=== PATIENT | male | born 1950 | race Caucasian/White ===

== ENCOUNTER 2019-09-18 07:01 | Observation (INO) ==
[2019-09-18] MEDS ORDERED: predniSONE 50 MG TAB PO ONE (07:45)
[2019-09-18] MEDS ORDERED: FAMOTIDINE 20MG IV PUSH 20 MG/5 ML SYR IV STA (07:52)
[2019-09-18] MEDS ORDERED: DiphenhydrAMINE HCL 50 MG/ML VIAL IV STA (07:52)
[2019-09-18] MEDS ORDERED: HEPARIN (PORCINE) 1000 UNIT/ML 10 ML (CATH LAB USE ONLY) ONE ×2 (07:54→09:36)
[2019-09-18] MEDS ORDERED: NiCARDipine HCL INJ 2.5 MG/ML 10 ML AMP ONE (07:54)
--- NOTE | 2019-09-18 07:54 | Pre Anesthesia Assessment ---
Date of Service September 18, 2019 Pre Sedation Assessment Vital Signs Temp Pulse Resp BP Pulse Ox 09/18/19 07:16 36.6 C 87 17 149/81 H 95 Cardiovascular + tachycardic Respiratory + respiratory effort normal Pre-Sedation Airway Assessment Smoking Status: Former smoker Hx Sleep Apnea: No Hx Difficult Intubation: No Short, Thick Neck: No Thyromental Distance: > or= 3.5 Finger Breadths Oral Cavity: + Dentures Mallampati Class: II ASA: ASA3 NPO Status Date of Last Intake of Fluids: 09/18/19 Time of Last Intake of Fluids: 06:00 Date of Last Intake of Solid Food: 09/17/19 Time of Last Intake of Solid Foods: 23:00 Procedure Planning Contraindications for Sedation: none Current Medications Reviewed: Yes Notes The planned sedation has been discussed with the patient. Informed Consent was obtained. I have identified the patient, determined the appropriateness of sedation and have assessed the patient immediately prior to the procedure. All medicine(s) and interventions are by my order.
--- NOTE | 2019-09-18 07:54 | History & Physical Bridge Note ---
Date of Service September 18, 2019 History & Physical Bridge Note I have examined the patient, reviewed the History & Physical and in the interval since the performance of the History & Physical I have noted the following changes of clinical significance: no changes noted. Pre-medicated for contrast allergy.
[2019-09-18] MEDS ORDERED: DiphenhydrAMINE HCL 50 MG/ML VIAL ONE (07:55)
[2019-09-18] MEDS ORDERED: NITROGLYCERIN/D5W 100MCG/ML 20ML SYR ONE (07:55)
[2019-09-18] MEDS ORDERED: fentaNYL citrate 100 MCG/2 ML VIAL ONE ×2 (07:55→09:15)
[2019-09-18] MEDS ORDERED: MIDAZOLAM HCL 1 MG/ML 2ML VIAL ONE ×4 (07:55→09:43)
[2019-09-18] MEDS ORDERED: raNITIdine HCl 25 MG/ML VIAL IV ONE (07:56)
[2019-09-18] MEDS ORDERED: ADENOSINE IV SOLN 3 MG/ML 20 ML VIAL IV ONE (08:51)
--- NOTE | 2019-09-18 09:04 | Cardiac Catheterization ---
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 Clinical evaluation leading to the procedure CAD Presenation: Stable angina Diagnostic Physicians Name: Onesimo Stokes MD Closure Device Recommendations: Management Recommendatons Cardiac Cath Procedure Full Procedure Date September 18, 2019 Pre-Procedure Diagnosis Pre-Procedure Diagnosis: CAD and Cardiomyopathy AUC Score AUC Score: 7 Post-Procedure Diagnosis Post-Procedure Diagnosis: Moderate CAD Procedure(s) Performed Procedure(s) Performed: Coronary Angiography and Left Heart Cath Comfort Filler Onesimo Stokes MD Sales Project Engineer(s) none Estimated Blood Loss Estimated Blood Loss: 7cc Medication(s) Medication(s): Diphenhydramine, Fentanyl, Heparin, Lidocaine 1%, Nicardipine, Nitroglycerin and Versed Medication(s): ranitidine Summary of Findings Procedure performed: Left heart catheterization, coronary angiography, ultrasound-guided vascular access Indication: Patient 69-year-old gentleman with a known history of coronary artery disease having previously undergone percutaneous intervention to the right coronary artery and left circumflex arteries. He has persistent cardiomyopathy, dyspnea with activity and occasional chest pains. Based on these factors he still be a good candidate for repeat coronary angiography and left heart catheterization. Procedure in detail: The patient was informed of the risk benefits and alternatives to the intended procedure, he understood such and wished to proceed. He was taken to the cardiac catheterization suite in a fasting state. Patient was premedicated due to a contrast allergy. Conscious addition was administered per protocol and the patient was monitored electrocardiographically throughout today's procedure. The left wrist area was prepped and draped in usual sterile fashion. Area over the ulnar artery was anesthetized using subcutaneous ministration of lidocaine solution. The left ulnar artery was subsequently accessed under ultrasound guidance using Seldinger technique. A 5 Ethiopian arterial sheath was placed at the site over a guidewire. The sheath was used to facilitate passage of the cardiac catheters for engagement the coronary arteries and left heart catheterization. Images were taken multiple orthogonal views prior to removal of the catheter. Based on the findings the patient was referred for evaluation of left anterior descending artery. The patient tolerated this portion of the procedure well. There were no immediate complications. Equipment used: 5 [place]ian [place] 4 Findings: Left main: The left main was short, but bifurcated normally into the left anterior descending and left circumflex arteries. Did not appear to be any significant left main disease. Left anterior descending: Left anterior descending was a medium sized vessel which reaches the apex. There was a very small first diagonal branch and a medium sized second diagonal branch and a large third diagonal branch. There was a complex lesion in the mid LAD at the site of the second diagonal takeoff. This was 60 to 70% in severity. It appeared to compromise the small first diagonal branch and ostium of the second diagonal branch. Left circumflex: Left circumflex artery was a codominant vessel. There was a stent in its proximal portion that was widely patent. It produced a large first and second OM branch and a medium sized third OM branch which produced some septal perforators. There was very mild ostial disease in these branches but no discrete or obstructive lesions. Right coronary artery: The right coronary artery had a stent in its proximal portion. There is very mild in-stent restenosis, approximately 30 to 40% at its most severe inside the stent. There were some luminal irregularities and a approximately 50% lesion in the mid portion of the PDA branch. No other discrete lesions. 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 Any exceptions are noted below. [facility] Card Cath Procedure Codes Cardiac Catheterization Procedure 1: Cardiovascular Cath Procedures: 28674 Coronaries and LHC (+/-LV) Moderate Sedation Procedure 2: Sedation/Anesthesia: 99904 Mod Sedation by the same physician;Init15 Min Child Age 5 & Up Procedure 1: Sedation/Anesthesia: 22064 Mod Sedation by the same physician; Ea [id number] Minutes PG Care Time/CCT Total # of Minutes Spent Total Time Spent with Patient: Total time spent is greater than 50% in coordination of care (as documented) at patient's floor/unit and/or counseling patient:
[2019-09-18] MEDS ORDERED: CLOPIDOGREL BISULFATE 300 MG TAB ONE (10:08)
[2019-09-18] MEDS ORDERED: ACETAMINOPHEN 325 MG TAB PO PRN (10:15)
[2019-09-18] MEDS ORDERED: SODIUM CHLORIDE 0.9% 1000ML 1,000 ML IV SCH (10:15)
--- NOTE | 2019-09-18 10:15 | Post Anesthesia Assessment ---
Date of Service September 18, 2019 Post Sedation Assessment Vital Signs Temp Pulse Resp BP Pulse Ox 09/18/19 07:16 97.9 F 87 17 149/81 H 95 Recovery Score Activity: Moves 4 extremities Respiration: Deep Breath/Cough Circulation: +/-20% PreAnes Value Consciousness: Fully Awake Oxygen Saturation: O2 needed for >90% Discharge Sedation Level of Care: Fast Track Phase II Post Sedation Plan On clinical assessment, the patient appears to have tolerated the sedation without complications. Patient is recovering as anticipated. Patient will continue to be monitored by nursing and may be discharged when sedation discharge criteria are met per below protocol. Upon Completions of procedure up to 15 minutes continue every 5 minute vital signs and the P.A.R. score; then discharge to a Phase I or Fast Track to Phase I I per the following guidelines: * Discharge Patient to appropriate Phase II area if PAR is 8 or greater or return to pre- procedure baseline. The post - procedure orders will be as directed. * If PAR score is less than 8 or not return to pre-procedure baseline then patient will follow Phase I monitoring till PAR is reached for Phase II. The Phase I may be done in procedure room or may call to secure a Phase I area. * If naloxone or flumazenil are used for reversal, hold in Phase I for continued monitoring from when last reversal dose was given for a minimum of 60 minutes or longer pending the nurse and/or physician discretion of patient condition before discharge to Phase II. Please call the Sedation Physician to re-evaluate and complete post-note for discharge to Phase II area. Do NOT discharge from procedure sedation or Phase 1 until post- sedation evaluation note is complete by procedure /sedation MD Sedation Discharge Instructions to be given to the patient at discharge to home.
[2019-09-18] MEDS ORDERED: ALBUTEROL HFA 8 GM INHALER INH PRN (10:19)
--- NOTE | 2019-09-18 10:22 | Cardiac Catheterization ---
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 Clinical evaluation leading to the procedure CAD Presenation: Unstable angina Anginal Classification: CCS III Heart Failure: NYHA Class: CCS III Cardiogenic Shock within 24 Hours: No Cardiac Arrest within 24 Hours: No Imaging Studies Past 6 Months: Yes Stress Studies Past 6 Months: No Diagnostic Physicians Name: Onesimo Del Real MD Status: Elective Closure Device Percutaneous Entry Location: Radial Closure Device: Radial Band Recommendations: PCI without planned CABG PCI Indication: Unstable Angina Lesion Segment Name: mid LAD Culprit Artery: Yes Stenosis Prior to Rx (%): 70 Chronic Total Occlusion: No IVUS: Yes FFR: Yes Pre-Procedure ONEL Flow: 3 Previously Treated Lesion: No Lesion Complexity: Non-High/Non-C Lesion Length (mm): 25 Thrombus Present: No Bifurcation Lesion: Yes Guidewire Across Lesion: Stenosis Post-Procedure (%): 0 Post-Procedure ONEL Flow: 3 Devices(s) Deployed: Yes Yes Intraprocedure Events Significant Disection: No Perforation: No Cardiac Cath Procedure Full Procedure Date September 18, 2019 Pre-Procedure Diagnosis Pre-Procedure Diagnosis: CAD and Cardiomyopathy AUC Score AUC Score: 7 Post-Procedure Diagnosis Post-Procedure Diagnosis: Severe CAD and Successful PCI Procedure(s) Performed Procedure(s) Performed: Drug Eluting Stent, IVUS and Fractional Flow [place] [employer] Sales And Service Manager Onesimo Del Real MD Prepress Supervisor(s) Zenon Sanchez Estimated Blood Loss Estimated Blood Loss: 15 Medication(s) Medication(s): Clopidogrel, Fentanyl, Heparin, Nicardipine, Nitroglycerin and Versed Summary of Findings Indication: Progressive dyspnea, severe LV dysfunction Access: 6 Fr slender left radial artery Catheters: EBU 3.5 guide Findings: For full details of patient's coronary angiography please cath report dictated by Dr. Stokes. Briefly, patient found to have intermediate mid LAD at bifurcation with first diagonal. Decision to proceed FFR and possible PCI. -- PCI -- Antithrombotic therapy: Heparin, clopidogrel Procedure: Left main cannulated with EBU 3.5 guide BMW wire passed across lesion into distal vessel ACIST FFR catheter placed into late-mid LAD Pd/Pa 0.81 Decision to proceed with PCI IVUS used to assess length of disease, degree of calcification and for vessel sizing. Proximal to mid LAD lesion predilated with 2.0 compliant pharmacy technician assistant 50 wire placed into first diagonal Ostium of first diagonal dilated with 2.0 balloon Dilated LAD lesion stented with 3.0 x 38 mm Kristian drug-eluting stent Diagonal rewired with new forestry pilot 50 wire Ostium of diagonal through stent struts dilated with 2.0 balloon Stent post-dilated with 3.0 and 3.5 noncompliant balloons IC vasodilators administered for spasm IVUS showed well-expanded stent with no apparent edge complications. Post procedure NOEL 3 flow, stent well expanded with minimal residual stenosis and no apparent cardiac complications. Arterial Closure: TR band Summary: 1. Severe obstructive mid LAD stenosis by FFR 2. Successful PCI of proximal to mid LAD with single drug-eluting stent (3.0 x 30 mm Kristian; postdilated with 3.5 NC). 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 Any exceptions are noted below. [facility] Card Cath Procedure Codes Cardiac Catheterization Procedure 1: Cardiovascular Cath Procedures: 59387 (Doppler) Pressure Wire Therapeutic Services & Ancillary Proc Procedure 1: Cardiovascular Tx and Anc Procedures: 55311 IV Ultrasound (Coronary or Graft) Moderate Sedation Procedure 1: Sedation/Anesthesia: 95955 Mod Sedation by a different physician ;Init15 Min Child Age 5&Up Procedure 2: Sedation/Anesthesia: 86045 Mod Sedation by a different physician;Ea Additional 15 Minutes Angioplasty Procedure 1: Cardiovascular Angioplasty Procedures: 75280 PTCA; ea addl branch of a major cor art RC LC LD Stenting Procedure 1: Cardiovascular Stent Procedures: 69504 Perc transcatheter placement of intracoronary stent(s), with ang PG Care Time/CCT Total # of Minutes Spent Total Time Spent with Patient: Total time spent is greater than 50% in coordination of care (as documented) at patient's floor/unit and/or counseling patient:
[2019-09-18] MEDS ORDERED: GLUCAGON FOR INJ 1 MG VIAL IM PRN (12:15)
[2019-09-18] MEDS ORDERED: GLUCOSE 40% GEL 15 GM TUBE PO PRN (12:15)
[2019-09-18] MEDS ORDERED: GLUCOSE 10 TABS/TUBE PO PRN (12:15)
[2019-09-18] MEDS ORDERED: CARBOHYDRATES FOR HYPOGLYCEMIA PO PRN (12:15)
[2019-09-18] MEDS ORDERED: DEXTROSE 50% 50 ML SYRINGE IV PRN (12:15)
[2019-09-18] MEDS: INSULIN ASPART 100 UNITS/ML 3 ML PEN SC SCH ×3 (12:42→20:29)
[2019-09-18] MEDS ORDERED: glipiZIDE 5 MG TAB PO SCH (14:00)
--- NOTE | 2019-09-18 19:06 | Electrocardiogram Report ---
Test Reason : Blood Pressure : / mmHG Vent. Rate : 093 BPM Atrial Rate : 093 BPM P-R Int : 122 ms QRS Dur : 148 ms QT Int : 424 ms P-R-T Axes : 047 -12 102 degrees QTc Int : 527 ms Normal sinus rhythm Left bundle branch block Abnormal ECG When compared with ECG of 16-MAR-2014 11:32, Vent. rate has increased BY 31 BPM Left bundle branch block is now Present Confirmed by Onesimo Stokes ([id number]) on 09/18/2019 7:06:07 PM Referred By: John Stokes Confirmed By:Kg Stokes
[2019-09-18] MEDS: SACUBITRIL-VALSARTAN 24-26 MG TAB PO SCH (20:26)
[2019-09-18] MEDS ORDERED: SIMVASTATIN 40 MG TAB PO SCH (21:00)
[2019-09-19 06:05] LABS: Basophils # (auto) 0.02 K/uL (0-0.2); Basophils % (auto) 0.2 %; Eosinophils # (auto) 0.02 K/uL (0-0.5); Eosinophils % (auto) 0.2 %; Hematocrit (blood only) 34.5 % (42-52); Hemoglobin 10.7 g/dL (14.0-18.0); Immature Granulocytes # (auto) 0.07 K/uL (0.00-0.02); Immature Granulocytes % (auto) 0.6 %; Lymphocytes # (auto) 1.82 K/uL (1.2-3.4); Lymphocytes % (auto) 14.5 %; Mean Corpuscular Hemoglobin 21.5 pg (25-34); Mean Corpuscular Volume 69.3 fL (80-100); Mean Platelet Volume 10.5 fL (7.4-10.4); Monocytes % (auto) 7.2 %; Neutrophils # (auto) 9.74 K/uL (1.4-6.5); Neutrophils % (auto) 77.3 %; Platelet Count 200 K/uL (130-400); RDW Coefficient of Variation 15.2 % (11.5-14.5); RDW Standard Deviation 37.8 fL (36.4-46.3); Red Blood Count 4.98 M/uL (4.7-6.1); White Blood Count 12.57 K/uL (4.8-10.8)
[2019-09-19 06:40] LABS: BUN Creatinine Ratio 14.2 (10-20); Calcium 8.3 mg/dl (8.5-10.1); Creatinine Clr Calc Pharmacy 69.6 ml/min; Est GFR (African American) 79.5; Est GFR (Non-African American) 68.6; Potassium 3.4 mmol/L (3.5-5.1)
[2019-09-19 06:49] LABS: Microcytosis Present
[2019-09-19] MEDS: SACUBITRIL-VALSARTAN 24-26 MG TAB PO SCH (08:36)
[2019-09-19] MEDS: INSULIN ASPART 100 UNITS/ML 3 ML PEN SC SCH (08:37)
[2019-09-19] MEDS ORDERED: FLUTICASONE/VILANTEROL 100/25MCG 14 PUFFS/INHALER INH SCH (09:00)
[2019-09-19] MEDS ORDERED: FOLIC ACID 400 MCG TAB PO SCH (09:00)
[2019-09-19] MEDS ORDERED: PANTOprazole 40 MG TAB PO SCH (09:00)
[2019-09-19] MEDS ORDERED: CEROVITE ADV FORMULA TAB PO SCH (09:00)
[2019-09-19] MEDS ORDERED: METOPROLOL SUCC 50MG EXT REL TAB PO SCH (09:00)
[2019-09-19] MEDS ORDERED: VITAMIN B COMPLEX TAB PO SCH (09:00)
[2019-09-19] MEDS ORDERED: CLOPIDOGREL BISULFATE 75 MG TAB PO SCH (09:00)
[2019-09-19] MEDS ORDERED: CHOLECALCIFEROL 1,000 UNITS 25 MCG TAB PO SCH (09:00)
--- NOTE | 2019-09-25 16:24 | Discharge Summary ---
Date of Service September 20, 2019 Admission HPI Per Admitting Provider The patient has a known cardiomyopathy and has persistent symptoms of dyspnea with activity. He is felt to be a good candidate for coronary angiography. Principal Diagnosis q Discharge Exam Left radial access site without hematoma. Good perfusion of left hand. Palpable ulnar pulse. Discharge Data Allergies Allergy/AdvReac Type Severity Reaction Status Date / Time Iodinated Contrast Media Allergy Severe Anaphylaxis Verified 09/24/19 01:36 aspirin Allergy Hives Verified 09/24/19 01:36 adenosine AdvReac Severe Wheezing Verified 09/24/19 01:36 oxycodone [From Percocet] AdvReac Severe Anxiety Verified 09/24/19 01:36 propranolol [From Inderal LA] AdvReac Mild Wheezing Verified 09/24/19 01:36 steroids AdvReac Severe Mood change Uncoded 09/24/19 01:36 Consultations 09/18/19 10:17 Consult Cardiac Rehabilitation Routine Procedures Performed Operation Date: 09/18/19 08:00 Actual Procedures s Drug Eluting Stent SGl Vessel - John Del Real MD s Cineradiography w/Routine Exam - John Del Real MD p Cath, Left with Cors and Vent - John Stokes MD s IVUS Coronary Single Vessel - John Del Real MD s Fraction Flow [place] SGL Ves - John Del Real MD Ordered Studies 09/18/19 06:41 CL Cath Imgs for PACS use only Stat 09/18/19 10:59 CL IVUS Coronary Single Vessel Routine Hospital Course (1) Ischemic cardiomyopathy: On the day of admission the patient underwent coronary angiography via the left ulnar artery. He was noted to have stenosis in the mid LAD which was confirmed with invasive testing. He underwent percutaneous intervention at that site. The remainder of his hospitalization was uncomplicated. At time of discharge he was feeling well without symptoms. Total Time Total Time Spent Total Time Spent (In Minutes): 10 Total Time Includes: Examination of the Patient and Medication Reconciliation Discharge Plan Discharge Items Patient Disposition: Home - Self-Care Reason For Visit: PCI Discharge Diagnosis: CAD Condition on Discharge: Good Activity: Per Instructions section Activity Comment: No vigorous activity using the left hand or wrist for 7 days Lifting: No more than 5 pounds Lifting Comment: No lifting over 5 pounds for 7 days Bathing: No limitations Bathing Comment: Do not soak left wrist Driving/Machine Use: Resume 1 day after discharge Non-emergency contact: Airline Pilot Flight Instructor Call non-emergency contact if: you have any medication questions Follow-up/Referrals: Cindy Barnett MD [Primary Care Provider] - 09/22/19 3:00 pm (Follow-up appt with Dr. Barnett at [facility]. ) Diet: Carb Consistent or DM2 Addtl Attending Provider Instructions: Do not start metformin until tomorrow morning Pending Studies at Discharge: No Stand-Alone Forms: My [facility] [email or web address], Smoking Cessation Medications and DC Order Prescriptions: New Brilinta 90 mg tablet 90 mg PO Q12H Qty: 120 RF: 3 Continued simvastatin [Zocor] 40 mg tablet 40 mg PO HS RF: 0 cholecalciferol (vitamin D3) 25 mcg (1,000 unit) capsule 25 mcg PO QAM RF: 0 albuterol sulfate [Ventolin HFA] 90 mcg/actuation HFA aerosol inhaler 2 puffs INH Q6H PRN (Reason: Shortness Of Breath) RF: 0 metformin 500 mg tablet 500 mg PO QID RF: 0 nitroglycerin 0.4 mg tablet, sublingual 0.4 mg SL Q5M PRN (Reason: Chest Pain) RF: 0 fluticasone propion-salmeterol 232-14 mcg/actuation aerosol powdr breath activated 1 puffs INH BID RF: 0 metoprolol succinate 50 mg tablet extended release 24 hr 50 mg PO DAILY RF: 0 Entresto 24-26 mg tablet 1 tab PO BID RF: 0 pantoprazole 40 mg tablet,delayed release (DR/EC) 40 mg PO DAILY RF: 0 folic acid 800 mcg tablet 0.8 mg PO DAILY RF: 0 Discontinued clopidogrel [Plavix] 75 mg tablet 75 mg PO DAILY RF: 0 No Action glipizide 5 mg tablet extended release 24hr 5 mg PO BID RF: 0 ipratropium-albuterol 0.5 mg-3 mg(2.5 mg base)/3 mL Solution For Nebulization 3 ml INHALATION QID PRN (Reason: Shortness Of Breath Or Wheezing) RF: 0 PreserVision AREDS-2 [id number] Capsule 1 tab PO BID RF: 0 isosorbide mononitrate 30 mg tablet extended release 24 hr 30 mg PO DAILY Qty: 30 RF: 0 Discharge Orders: Discharge Order (Routine); Ordered 09/19/19 Ordered By: John Cash/Other Patient Handouts: Coronary Stents, Cardiac Catheterization, Ticagrelor oral tablet Admission Data Admit Date/Time: 09/18/19 09:24 Attending Provider: John Stokes Admit Provider: John Stokes Primary Care Provider: Cindy Barnett Other Interventions: Discharge Summary Assessment (RN) Last Done: 09/19/19 10:58 DC Date/Time DO NOT enter until pt leaves facility: 09/19/19 11:01 Coding Level of Care Code D/C Day Management <30 mins Diagnoses Ischemic cardiomyopathy I25.5
== END 2019-09-19 11:01 | disposition home or self-care (01) ==
LOC: CC 07:01 → 2S 07:01

== ENCOUNTER 2019-09-24 00:21 | Observation (INO) ==
[2019-09-24 01:41] LABS: Basophils # (auto) 0.03 K/uL (0-0.2); Basophils % (auto) 0.3 %; Eosinophils # (auto) 0.37 K/uL (0-0.5); Eosinophils % (auto) 3.5 %; Hematocrit (blood only) 38.1 % (42-52); Immature Granulocytes # (auto) 0.15 K/uL (0.00-0.02); Immature Granulocytes % (auto) 1.4 %; Lymphocytes # (auto) 1.79 K/uL (1.2-3.4); Mean Corpuscular Hgb Conc 31.5 g/dL (32-36); Mean Corpuscular Volume 69.8 fL (80-100); Mean Platelet Volume 10.5 fL (7.4-10.4); Monocytes # (auto) 1.02 K/uL (0.11-0.59); Monocytes % (auto) 9.7 %; Neutrophils # (auto) 7.15 K/uL (1.4-6.5); Neutrophils % (auto) 68.1 %; Platelet Count 209 K/uL (130-400); RDW Coefficient of Variation 15.8 % (11.5-14.5); RDW Standard Deviation 39.6 fL (36.4-46.3); Red Blood Count 5.46 M/uL (4.7-6.1); White Blood Count 10.51 K/uL (4.8-10.8)
[2019-09-24 01:56] LABS: Partial Thromboplastin Time 27.3 Seconds (21.0-31.0); Prothrombin Time 10.2 Seconds (9.0-12.0)
[2019-09-24 01:59] LABS: Albumin Level 3.3 gm/dl (3.4-5.0); Calcium 8.7 mg/dl (8.5-10.1); Creatinine Clr Calc Pharmacy 70.9 ml/min; Est GFR (African American) 77.8; Est GFR (Non-African American) 67.1; Potassium 3.8 mmol/L (3.5-5.1)
[2019-09-24 02:06] LABS: Albumin Globulin Ratio 0.9 (0.9-2); Bilirubin,Total 0.4 mg/dl (0.2-1); Globulin 3.5 gm/dl (2.5-4.0); Microcytosis Present; Phosphorus 2.6 mg/dl (2.5-4.9); Total Protein 6.8 gm/dl (6.4-8.2); Troponin I 0.389 ng/ml (0-0.045)
--- NOTE | 2019-09-24 02:14 | Emergency Department Note ---
Entered by Kamini Seymour acting as a scribe for History of Present Illness General Chief complaint: Chest Pain Stated complaint: CHEST PAIN Time Seen by Provider: 09/24/19 01:01 Source: patient and family () History of Present Illness Provider complaint: chest pain Onset (ago): hour(s) (earlier today) Location: chest Radiation: extremity (upper) Pain Consistency: + intermittent Quality: + other (chest pain) Associated symptoms: + diaphoresis and + other (Negative congestion; ); no cough and no fever/chills Treatments prior to arrival: other (Medication) The patient, who is a 69 year old male with a medical history of hypertension, diabetes, LBBB, COPD and ischemic cardiomyopathy, presents to the Emergency Room with complaints of 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 The patient notes this episode of chest pain that lasted five to 10 minutes. The patient notes that this chest pain radiated to down his arm. The patient's confirms the patient was clammy and cold during this episode. The patient states that he took a medication the alleviated his arm pain and then his chest symptoms. The patient informs that on his way to the ER he had an episode of chest burning that was not similar to the pain he felt earlier today. The patent states that this episode lasted two to three minutes. The patient denies fever, cough and congestion. The patient confirms an extensive cardiac history including heart failures before stent placements and a 70% blockage. The patient notes that he was at the roofing subcontractor for a cardiac cath. week follow up when his symptoms started. Home Medications Home Medications Medication Instructions Recorded Confirmed Type albuterol sulfate 90 mcg/actuation 2 puffs INH Q6H PRN 09/04/19 09/24/19 History aerosol inhaler cholecalciferol (vitamin D3) 25 25 mcg PO QAM 09/04/19 09/24/19 History mcg (1,000 unit) capsule fluticasone 232 mcg-salmeterol 14 1 puffs INH BID 09/04/19 09/24/19 History mcg/actuation breath activated powdr folic acid 800 mcg tablet 0.8 mg PO DAILY 09/04/19 09/24/19 History metformin 500 mg tablet 500 mg PO QID tab 09/04/19 09/24/19 History metoprolol succinate 50 mg 50 mg PO DAILY 09/04/19 09/24/19 History tablet,extended release 24 hr nitroglycerin 0.4 mg sublingual 0.4 mg SL Q5M PRN 09/04/19 09/24/19 History tablet pantoprazole 40 mg tablet,delayed 40 mg PO DAILY 09/04/19 09/24/19 History release sacubitril 24 mg-valsartan 26 mg 1 tab PO BID 09/04/19 09/24/19 History tablet simvastatin 40 mg tablet 40 mg PO HS 09/04/19 09/24/19 History ticagrelor [Brilinta] 90 mg PO Q12H #120 tab 09/19/19 09/24/19 Rx glipizide 5 mg PO BID 09/24/19 09/24/19 History ipratropium-albuterol 3 ml INHALATION QID PRN 09/24/19 09/24/19 History vit C,A-Ce-jotog-lutein-zeaxan 1 tab PO BID 09/24/19 09/24/19 History [PreserVision AREDS-2] Allergies Allergy/AdvReac Type Severity Reaction Status Date / Time Iodinated Contrast Media Allergy Severe Anaphylaxis Verified 09/24/19 01:36 aspirin Allergy Hives Verified 09/24/19 01:36 adenosine AdvReac Severe Wheezing Verified 09/24/19 01:36 oxycodone [From Percocet] AdvReac Severe Anxiety Verified 09/24/19 01:36 propranolol [From Inderal LA] AdvReac Mild Wheezing Verified 09/24/19 01:36 steroids AdvReac Severe Mood change Uncoded 09/24/19 01:36 Past Med/Surg History Medical History COPD (chronic obstructive pulmonary disease) Coronary disease Myocardial infarction to 2002 3.0 x 18 multilink zeta to RCA 09/19/2002 3.5 x 8 millimeter multilink zeta to RCA 09/19/2002 Cardiac catheterization 01/17/2014 Cardiac catheterization 10/17/2018 with PCI to left circumflex, 2.75 x 32 synergy stent. 50 percent mid LAD stenosis, widely patent RCA. Diabetes mellitus Dyspnea Gastroesophageal reflux disease Hypertension Ischemic cardiomyopathy Echocardiogram dated 05/11/2019: Ejection fraction 15-20 percent. Left bundle branch block Surgical History History of appendectomy History of prostate surgery Social History Preferred Language: [place] [employer] Chief Required: No Beliefs That Will Affect Care: None Current Living Situation: Spouse Feels Safe at Home: Yes Smoking Status: Former smoker Hx Alcohol Use: No Hx Substance Use: No Review of Systems See HPI for pertinent positives & negatives. and A total of 10 systems reviewed and were otherwise negative Physical Exam Vital Signs Vital Signs - 24 hr 09/24/19 00:30 09/24/19 00:53 09/24/19 01:00 Pulse Rate 101 H 98 H Pulse Rate [Apical] 98 H Pulse Rate from SpO2 Sensor 97 H Respiratory Rate 20 17 21 Respiratory Effort / Characteristics Non-Labored Respiratory Depth Normal Normal Blood Pressure 127/76 110/75 Blood Pressure [Right Arm] 121/80 Blood Pressure Mean 93 90 Blood Pressure Mean [Right Arm] 93 Pulse Oximetry 97 95 96 Oxygen Delivery Method Room Air Room Air Sepsis Recent Fever Within 48 Hours No Sepsis New/Unexplained Change in Mental Status No Sepsis Action Taken by Nursing No Action Required 09/24/19 01:27 09/24/19 01:31 09/24/19 02:00 Pulse Rate 97 H 93 H Pulse Rate [Apical] Pulse Rate from SpO2 Sensor 93 H Respiratory Rate 24 16 Respiratory Effort / Characteristics Respiratory Depth Blood Pressure 115/78 112/75 Blood Pressure [Right Arm] Blood Pressure Mean 82 90 Blood Pressure Mean [Right Arm] Pulse Oximetry 97 97 95 Oxygen Delivery Method Room Air Room Air Room Air Sepsis Recent Fever Within 48 Hours Sepsis New/Unexplained Change in Mental Status Sepsis Action Taken by Nursing 09/24/19 02:01 09/24/19 02:30 09/24/19 03:00 Pulse Rate 93 H 91 H 91 H Pulse Rate [Apical] Pulse Rate from SpO2 Sensor 94 H 91 H 91 H Respiratory Rate 21 13 22 Respiratory Effort / Characteristics Respiratory Depth Blood Pressure 116/70 111/68 Blood Pressure [Right Arm] Blood Pressure Mean 87 83 Blood Pressure Mean [Right Arm] Pulse Oximetry 96 96 97 Oxygen Delivery Method Sepsis Recent Fever Within 48 Hours Sepsis New/Unexplained Change in Mental Status Sepsis Action Taken by Nursing 09/24/19 03:30 Pulse Rate 96 H Pulse Rate [Apical] Pulse Rate from SpO2 Sensor 96 H Respiratory Rate 15 Respiratory Effort / Characteristics Respiratory Depth Blood Pressure Blood Pressure [Right Arm] Blood Pressure Mean Blood Pressure Mean [Right Arm] Pulse Oximetry 96 Oxygen Delivery Method Sepsis Recent Fever Within 48 Hours Sepsis New/Unexplained Change in Mental Status Sepsis Action Taken by Nursing GENERAL: Awake, alert, well-appearing, in no distress HENT: Normocephalic, atraumatic. Oropharynx unremarkable. EYES: Normal conjunctiva. Sclera non-icteric. NECK: Supple. No nuchal rigidity. FROM. No JVD. RESPIRATORY: Diminished breath sounds at bases, otherwise clear. CARDIAC: Regular rate, normal rhythm. Extremities warm and well perfused. Pulses equal. ABDOMEN: Soft, non-distended. No tenderness to palpation. No rebound or guarding. No masses. RECTAL: Deferred. MUSCULOSKELETAL: Chest examination reveals no tenderness. The back is symmetrical on inspection without obvious abnormality. There is no CVA tenderness to palpation. No joint edema. LOWER EXTREMITIES: Calves are equal size bilaterally and non-tender. Scant bilateral lower extremity edema. No discoloration. NEURO: Normal sensorium. No sensory or motor deficits noted. SKIN: No rash or jaundice noted. Course Course 0117: Past medical records reviewed. The patient was evaluated in room C5. A complete history and physical exam was performed. 0250: I reviewed the patient's case with Dr. Beltran, [facility] Hospitalist. He will evaluate the patient for further management. Consultations Consultation #1: I reviewed the patient's case with Dr. Beltran [facility] Hospitalist. He will evaluate the patient for further management. Medical Decision Making Differential Diagnosis Differential diagnosis includes: cardiac ischemia, aortic dissection, pulmonary embolism, pneumonia, pneumothorax, musculoskeletal, infections, pericarditis, myocarditis, esophageal rupture, gastrointestinal, as well as others were entertained. Medical Records Attestation: I reviewed the patient's medical records. Home Medications Current Medication List: was personally reviewed by me Laboratory Data Attestation: I reviewed the patient's lab results. Result diagrams: 09/24/19:09/24/19: Lab Results 09/24/19 09/24/19 09/24/19 Range/Units 01: 01: 01:29 WBC 10.51 (4.8-10.8) K/uL RBC 5.46 (4.7-6.1) M/uL Hgb 12.0 L (14.0-18.0) g/dL Hct 38.1 L (42-52) % MCV 69.8 L (80-100) fL MCH 22.0 L (25-34) pg MCHC 31.5 L (32-36) g/dL RDW Std Deviation 39.6 (36.4-46.3) fL RDW Coeff of Awais 15.8 H (11.5-14.5) % Plt Count 209 (130-400) K/uL MPV 10.5 H (7.4-10.4) fL Immature Gran % (Auto) 1.4 % Neut % (Auto) 68.1 % Lymph % (Auto) 17.0 % [place] % (Auto) 9.7 % Eos % (Auto) 3.5 % Baso % (Auto) 0.3 % Immature Gran # (Auto) 0.15 H (0.00-0.02) K/uL Neut # (Auto) 7.15 H (1.4-6.5) K/uL Lymph # (Auto) 1.79 (1.2-3.4) K/uL [place] # (Auto) 1.02 H (0.11-0.59) K/uL Eos # (Auto) 0.37 (0-0.5) K/uL Baso # (Auto) 0.03 (0-0.2) K/uL Microcytosis Present PT 10.2 (9.0-12.0) Seconds INR 1.0 (0.9-1.1) APTT 27.3 (21.0-31.0) Seconds PTT Ratio 1.0 Sodium 139 (136-145) mmol/L Potassium 3.8 (3.5-5.1) mmol/L Chloride 110 H (98-107) mmol/L Carbon Dioxide 20 L (21-32) mmol/L Anion Gap 9.0 (3-11) BUN 13 (7-18) mg/dl Creatinine 1.12 (0.6-1.4) mg/dl Est Cr Clr Drug Dosing 70.9 ml/min Est GFR ( Amer) 77.8 Est GFR (Non-Af Amer) 67.1 BUN/Creatinine Ratio 12.0 (10-20) Glucose 208 H (70-99) mg/dl Calcium 8.7 (8.5-10.1) mg/dl Phosphorus 2.6 (2.5-4.9) mg/dl Magnesium 2.0 (1.8-2.4) mg/dl Total Bilirubin 0.4 (0.2-1) mg/dl AST 7 L (15-37) U/L ALT 15 (12-78) U/L Alkaline Phosphatase 52 (45-117) U/L Troponin I 0.389 H* (0-0.045) ng/ml Total Protein 6.8 (6.4-8.2) gm/dl Albumin 3.3 L (3.4-5.0) gm/dl Globulin 3.5 (2.5-4.0) gm/dl Albumin/Globulin Ratio 0.9 (0.9-2) Lipase 97 (73-393) U/L Imaging Data Attestation: I personally reviewed and interpreted this imaging study as follows: My Impression: XRAY CHEST Cardiomegaly with no infiltrate. ECG Data Attestation: I personally reviewed and interpreted this ECG as follows: Indication: + chest pain Rate (beats per minute): 104 Rhythm: + sinus tachycardia ECG Intervals/blocks: + Left bundle branch block ECG Findings: + Other (No scgarbossa criteria; QtC of 502; QRS of 140) Blood Pressure Blood Pressure Findings: Normal blood pressure MDM Narrative The patient is a pleasant 69-year-old gentleman with a past medical history of CAD status post PCI 09/18 for unstable angina, chronic left bundle branch block, ischemic cardiomyopathy EF 15-20%, hypertension, COPD who presents emergency department after being evaluated at [facility] for episode of chest pain that occurred at 4 PM today when following up with his PCP per HPI. Of note, the was question of an attempt to arrange direct admission from the outside hospital given the patient had a stent placed here last week with Dr. Del Real. Per [place] ED note, [place] provider discussed the case with Dr. Ballesteros who recommended admission for ASA desensitization and serial enzymes. Per the outside hospital documentation patient refused admission at [facility] and did not want to be transfer via ambulance and so signed out AMA and drove here in private vehicle. On arrival patient is in no acute distress, afebrile stable vital signs. EKG demonstrates left bundle branch block without Sgarbossa criteria. Chest x-ray without acute process per preliminary review. WBC within normal limits. Platelets within normal limits. H/H 12/38 improved from prior values. Chemistry without significant acidosis. Troponin is 0.389 which is decreased from 0.54 at outside facility at 1700. Patient continued to be asymptomatic in the emergency department. Case was discussed with Dr. Beltran [facility] hospitalist, who will evaluate the patient for admission. Case was reviewed with [facility] cardiology on-call, on behalf of admitting team, does not recommend heparin and this time. Continue to trend Troponin. Dr. Beltran updated. Continuous Cardiac Monitoring: An order was placed for continuous cardiac monitoring. The monitor shows a rate of 104 with a sinus tachycardic rhythm. Impression & Plan Substernal chest pain, History of percutaneous coronary intervention, Stented coronary artery, Elevated troponin, Left bundle branch block, Ischemic cardiomyopathy Discharge Plan Visit Data Chief Complaint: Chest Pain Stated Complaint: CHEST PAIN ED Provider: Nasir Bean Discharge Problem: Substernal chest pain, History of percutaneous coronary intervention, Stented coronary artery, Elevated troponin, Left bundle branch block, Ischemic cardiomyopathy Patient Disposition: Being Evaluated by Hospitalist Forms Stand Alone Forms: My [facility] [employer] Prescriptions Prescriptions: No Action simvastatin [Zocor] 40 mg tablet 40 mg PO HS RF: 0 cholecalciferol (vitamin D3) 25 mcg (1,000 unit) capsule 25 mcg PO QAM RF: 0 albuterol sulfate [Ventolin HFA] 90 mcg/actuation HFA aerosol inhaler 2 puffs INH Q6H PRN (Reason: Shortness Of Breath) RF: 0 metformin 500 mg tablet 500 mg PO QID RF: 0 nitroglycerin 0.4 mg tablet, sublingual 0.4 mg SL Q5M PRN (Reason: Chest Pain) RF: 0 fluticasone propion-salmeterol 232-14 mcg/actuation aerosol powdr breath activated 1 puffs INH BID RF: 0 metoprolol succinate 50 mg tablet extended release 24 hr 50 mg PO DAILY RF: 0 Entresto 24-26 mg tablet 1 tab PO BID RF: 0 pantoprazole 40 mg tablet,delayed release (DR/EC) 40 mg PO DAILY RF: 0 folic acid 800 mcg tablet 0.8 mg PO DAILY RF: 0 Brilinta 90 mg tablet 90 mg PO Q12H Qty: 120 RF: 3 glipizide 5 mg tablet extended release 24hr 5 mg PO BID RF: 0 ipratropium-albuterol 0.5 mg-3 mg(2.5 mg base)/3 mL Solution For Nebulization 3 ml INHALATION QID PRN (Reason: Shortness Of Breath Or Wheezing) RF: 0 PreserVision AREDS-2 [id number] Capsule 1 tab PO BID RF: 0 Referrals Referrals: Cindy Barnett MD [Primary Care Provider] - The scribe's documentation has been prepared under my direction and personally reviewed by me in its entirety. I confirm that the note above accurately reflects all work, treatment, procedures, and medical decision making performed by me.
[2019-09-24] MEDS ORDERED: GLUCAGON FOR INJ 1 MG VIAL SQ PRN (05:11)
[2019-09-24] MEDS ORDERED: ONDANSETRON INJ 2 MG/ML 2 ML VIAL IV PRN (05:11)
[2019-09-24] MEDS ORDERED: ALUMINUM/MAGNESIUM SUSP 30 ML UDC PO PRN (05:11)
[2019-09-24] MEDS ORDERED: GLUCOSE 40% GEL 15 GM TUBE PO PRN (05:11)
[2019-09-24] MEDS ORDERED: GLUCOSE 10 TABS/TUBE PO PRN (05:11)
[2019-09-24] MEDS ORDERED: ALBUT/IPRATROP 3MG/0.5MG NEB 3 ML VIAL INH PRN (05:11)
[2019-09-24] MEDS ORDERED: MAGNESIUM HYDROXIDE SUSP 30 ML UDC PO PRN (05:11)
[2019-09-24] MEDS ORDERED: DEXTROSE 50% 50 ML SYRINGE IV PRN (05:11)
[2019-09-24] MEDS ORDERED: CARBOHYDRATES FOR HYPOGLYCEMIA PO PRN (05:11)
[2019-09-24] MEDS ORDERED: NITROGLYCERIN SL 0.4 MG/TAB TAB SL PRN (05:11)
[2019-09-24] MEDS ORDERED: ACETAMINOPHEN 325 MG TAB PO PRN (05:11)
--- NOTE | 2019-09-24 05:28 | History & Physical Report ---
Date of Service September 24, 2019 Assessment & Plan (1) Substernal chest pain: Substernal chest pain x2 this evening, resolved with sublingual glycerin, with troponin of 0.5 at referring hospital, and now 0.234 at [facility]. History of PCI with stented coronary artery/elevated troponin/hypertension/left bundle branch block/ischemic cardiomyopathy- The patient will be admitted to telemetry for serial cardiac enzymes, serial EKG's, cardiac rhythm monitoring. Continue metoprolol succinate 50 mg p.o. daily, nitroglycerin sublingual as needed, Entresto 1 p.o. twice daily, and Brilinta 90 mg p.o. every 12 hours. Of note, he is reported sensitive to aspirin, and there are potential plans to have him desensitized. 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 Del Real. Present on Admission?: Yes (2) History of percutaneous coronary intervention: See above Present on Admission?: Yes (3) Stented coronary artery: See above Present on Admission?: Yes (4) Elevated troponin: See above Present on Admission?: Yes (5) Diabetes mellitus: Hold glipizide and metformin. Placed on Accu-Cheks before meals and at bedtime with NovoLog coverage per scale Present on Admission?: Yes (6) Hypertension: See above Present on Admission?: Yes (7) COPD (chronic obstructive pulmonary disease): Continue usual inhalers of Advair discus and ipratropium-albuterol 3 mL inhalation 4 times daily as needed. Present on Admission?: Yes (8) Left bundle branch block: See above Present on Admission?: Yes (9) Ischemic cardiomyopathy: See above Present on Admission?: Yes (10) Gastroesophageal reflux disease: Continue pantoprazole 40 mg daily Present on Admission?: Yes (11) Hyperlipidemia LDL goal <70: Continue simvastatin 40 mg Present on Admission?: Yes History of Present Illness Chief Complaint: The patient presents to the emergency department with report of resolved episode of chest pain. Primary Care Provider: Cindy Barnett MD The patient is a 69-year-old male with a past medical history including CAD status post PCI and stent to coronary artery on 09/18/[address] Del Real, diabetes mellitus, hypertension, COPD, left bundle branch block, ischemic cardiomyopathy, history of prostate surgery and GERD. He presented to outpatient PCP office today due to chest pain, other than resolved with sublingual nitroglycerin. He was advised to go to [facility] emergency department, where he was assessed and call was made to on-call cardiology at [facility], who is Dr. Ballesteros, who recommend the patient be admitted there. The patient left that emergency department, and arrived at [facility] emergency department, but while in route here did have an episode of burning in his chest that was relieved with sublingual articulation. Allergies Allergy/AdvReac Type Severity Reaction Status Date / Time Iodinated Contrast Media Allergy Severe Anaphylaxis Verified 09/24/19 01:36 aspirin Allergy Hives Verified 09/24/19 01:36 adenosine AdvReac Severe Wheezing Verified 09/24/19 01:36 oxycodone [From Percocet] AdvReac Severe Anxiety Verified 09/24/19 01:36 propranolol [From Inderal LA] AdvReac Mild Wheezing Verified 09/24/19 01:36 steroids AdvReac Severe Mood change Uncoded 09/24/19 01:36 Home Medications Home Medications Medication Instructions Recorded Confirmed Type albuterol sulfate 90 mcg/actuation 2 puffs INH Q6H PRN 09/04/19 09/24/19 History aerosol inhaler cholecalciferol (vitamin D3) 25 25 mcg PO QAM 09/04/19 09/24/19 History mcg (1,000 unit) capsule fluticasone 232 mcg-salmeterol 14 1 puffs INH BID 09/04/19 09/24/19 History mcg/actuation breath activated powdr folic acid 800 mcg tablet 0.8 mg PO DAILY 09/04/19 09/24/19 History metformin 500 mg tablet 500 mg PO QID tab 09/04/19 09/24/19 History metoprolol succinate 50 mg 50 mg PO DAILY 09/04/19 09/24/19 History tablet,extended release 24 hr nitroglycerin 0.4 mg sublingual 0.4 mg SL Q5M PRN 09/04/19 09/24/19 History tablet pantoprazole 40 mg tablet,delayed 40 mg PO DAILY 09/04/19 09/24/19 History release sacubitril 24 mg-valsartan 26 mg 1 tab PO BID 09/04/19 09/24/19 History tablet simvastatin 40 mg tablet 40 mg PO HS 09/04/19 09/24/19 History ticagrelor [Brilinta] 90 mg PO Q12H #120 tab 09/19/19 09/24/19 Rx glipizide 5 mg PO BID 09/24/19 09/24/19 History ipratropium-albuterol 3 ml INHALATION QID PRN 09/24/19 09/24/19 History vit C,S-Dv-adalm-lutein-zeaxan 1 tab PO BID 09/24/19 09/24/19 History [PreserVision AREDS-2] Past Med/Surg History Medical History COPD (chronic obstructive pulmonary disease) Coronary disease Myocardial infarction to 2002 3.0 x 18 multilink zeta to RCA 09/19/2002 3.5 x 8 millimeter multilink zeta to RCA 09/19/2002 Cardiac catheterization 01/17/2014 Cardiac catheterization 10/17/2018 with PCI to left circumflex, 2.75 x 32 synergy stent. 50 percent mid LAD stenosis, widely patent RCA. Diabetes mellitus Dyspnea Gastroesophageal reflux disease Hypertension Ischemic cardiomyopathy Echocardiogram dated 05/11/2019: Ejection fraction 15-20 percent. Left bundle branch block Surgical History History of appendectomy History of prostate surgery Social History Preferred Language: [employer] Hand Required: No Beliefs That Will Affect Care: None Current Living Situation: Spouse Feels Safe at Home: Yes Smoking Status: Former smoker Hx Alcohol Use: No Hx Substance Use: No Review of Systems Review of Systems: The patient denies palpitations, shortness of breath, dyspnea on exertion, cough, lower extremity swelling, sore throat, fevers, chills, sweats, weight change, fatigue, nausea, vomiting, diarrhea , constipation, abdominal pain, pelvic pain, blood in urine or stool, dysuria, urinary frequency or urgency, lightheadedness, dizziness, headache, memory loss, loss of consciousness, rash, abnormal bruising or bleeding, imbalance, focal or generalized weakness, numbness or tingling in arms or legs, generalized arthralgias or myalgias, back or neck pain, or night sweats. The review of systems is otherwise negative other than for that already noted ab ove, and at least 10 systems have been reviewed. Physical Exam Physical Exam: The patient is awake, alert and oriented 3, well developed and well nourished, normocephalic and atraumatic, lying in bed and in no acute distress. HEENT--PERRL, EOMI, mucous membranes and oropharynx normal. Neck--supple. No JVD. No bruits. Thyroid normal, trachea midline, no adenopathy. Heart--normal S1 and S2. No murmurs, rubs or gallops. Lungs--clear bilaterally, no respiratory distress, no accessory muscle use. Abdomen--normal bowel sounds and soft. Nontender. Nondistended, no hernias or masses, no organomegaly. Extremities--no cyanosis or clubbing. No edema. There are good distal pulses b/l. Dermatologic--normal skin turgor, normal color, no abnormal lymph nodes, no rash. Neurologic--cranial nerves II through XII grossly intact. Rheumatologic--normal range of motion. Psychiatric--normal affect. Results & Data Vital Signs (Past 12 Hours) Vital Signs Pulse Pulse Resp BP BP Pulse Ox 09/24/19 04:27 90 20 126/79 97 09/24/19 03:50 90 20 135/85 96 09/24/19 03:30 96 H 15 96 09/24/19 03:00 91 H 22 111/68 97 09/24/19 02:30 91 H 13 116/70 96 09/24/19 02:01 93 H 21 96 09/24/19 02:00 93 H 16 112/75 95 09/24/19 01:31 97 H 24 115/78 97 09/24/19 01:27 97 09/24/19 01:00 98 H 21 110/75 96 09/24/19 00:53 98 H 17 121/80 95 09/24/19 00:30 101 H 20 127/76 97 Laboratory Results Laboratory Results WBC 10.51 K/uL (4.8-10.8) 09/24/19 01:29 RBC 5.46 M/uL (4.7-6.1) 09/24/19 01:29 Hgb 12.0 g/dL (14.0-18.0) L 09/24/19 01:29 Hct 38.1 % (42-52) L 09/24/19 01:29 MCV 69.8 fL (80-100) L 09/24/19 01: MCH 22.0 pg (25-34) L 09/24/19 01: MCHC 31.5 g/dL (32-36) L 09/24/19 01: RDW Std Deviation 39.6 fL (36.4-46.3) 09/24/19 01: RDW Coeff of Awais 15.8 % (11.5-14.5) H 09/24/19 01: Plt Count 209 K/uL (130-400) 09/24/19 01: MPV 10.5 fL (7.4-10.4) H 09/24/19 01: Immature Gran % (Auto) 1.4 % 09/24/19 01: Neut % (Auto) 68.1 % 09/24/19 01: Lymph % (Auto) 17.0 % 09/24/19 01: Noble % (Auto) 9.7 % 09/24/19 01: Eos % (Auto) 3.5 % 09/24/19 01: Baso % (Auto) 0.3 % 09/24/19 01: Immature Gran # (Auto) 0.15 K/uL (0.00-0.02) H 09/24/19 01: Neut # (Auto) 7.15 K/uL (1.4-6.5) H 09/24/19 01: Lymph # (Auto) 1.79 K/uL (1.2-3.4) 09/24/19 01: Noble # (Auto) 1.02 K/uL (0.11-0.59) H 09/24/19 01: Eos # (Auto) 0.37 K/uL (0-0.5) 09/24/19 01: Baso # (Auto) 0.03 K/uL (0-0.2) 09/24/19 01: Microcytosis Present 09/24/19 01: PT 10.2 Seconds (9.0-12.0) 09/24/19 01: INR 1.0 (0.9-1.1) 09/24/19 01: APTT 27.3 Seconds (21.0-31.0) 09/24/19 01:29 PTT Ratio 1.0 09/24/19 01:29 Sodium 139 mmol/L (136-145) 09/24/19 01:29 Potassium 3.8 mmol/L (3.5-5.1) 09/24/19 01:29 Chloride 110 mmol/L (98-107) H 09/24/19 01: Carbon Dioxide 20 mmol/L (21-32) L 09/24/19 01:29 Anion Gap 9.0 (3-11) 09/24/19 01:29 BUN 13 mg/dl (7-18) 09/24/19 01:29 Creatinine 1.12 mg/dl (0.6-1.4) 09/24/19 01:29 Est Cr Clr Drug Dosing 70.9 ml/min 09/24/19 01:29 Est GFR ( Amer) 77.8 09/24/19 01: Est GFR (Non-Af Amer) 67.1 09/24/19 01:29 BUN/Creatinine Ratio 12.0 (10-20) 09/24/19 01:29 Glucose 208 mg/dl (70-99) H 09/24/19 01:29 Calcium 8.7 mg/dl (8.5-10.1) 09/24/19 01:29 Phosphorus 2.6 mg/dl (2.5-4.9) 09/24/19 01: Magnesium 2.0 mg/dl (1.8-2.4) 09/24/19 01:29 Total Bilirubin 0.4 mg/dl (0.2-1) 09/24/19 01:29 AST 7 U/L (15-37) L 09/24/19 01:29 ALT 15 U/L (12-78) 09/24/19 01:29 Alkaline Phosphatase 52 U/L (45-117) 09/24/19 01:29 Troponin I 0.389 ng/ml (0-0.045) H* 09/24/19 01:29 Total Protein 6.8 gm/dl (6.4-8.2) 09/24/19 01:29 Albumin 3.3 gm/dl (3.4-5.0) L 09/24/19 01:29 Globulin 3.5 gm/dl (2.5-4.0) 09/24/19 01:29 Albumin/Globulin Ratio 0.9 (0.9-2) 09/24/19 01:29 Lipase 97 U/L (73-393) 09/24/19 01:29 Code Status & VTE Plan Code Status Full code VTE Prophylaxis Plan VTE Prophylaxis will be ordered: Yes PG Care Time/CCT Total # of Minutes Spent Total Time Spent with Patient: Total time spent is greater than 50% in c oordination of care (as documented) at patient's floor/unit and/or counseling patient: Coding Level of Care Code 09278 Initial Inpt Care Lvl 3 Diagnoses Substernal chest pain R07.2 History of percutaneous coronary intervention Z98.61 Stented coronary artery Z95.5 Elevated troponin R79.89 Diabetes mellitus E11.9 Hypertension I10 COPD (chronic obstructive pulmonary disease) J44.9 Left bundle branch block I44.7 Ischemic cardiomyopathy I25.5 Gastroesophageal reflux disease K21.9 Hyperlipidemia LDL goal <70 E78.5
--- NOTE | 2019-09-24 07:12 | XRay Report ---
XR chest 1V portable CLINICAL HISTORY: 69 years-old Male presenting with Chest Pain. TECHNIQUE: Portable upright AP view of the chest was obtained. COMPARISON: None. FINDINGS: Cardiac silhouette moderately enlarged. Mild pulmonary vascular prominence. Mild interstitial promine nce. Minimal basilar opacities. Apparent pleural thickening likely relates to extrapleural fat and is noted bilaterally. No pleural effusion or pneumothorax. Degenerative changes of the thoracic spine. Upper abdomen normal. IMPRESSION: 1. Cardiomegaly with possible mild volume overload and congestive change. No anamaria pulmonary edema. 2. Minimal bibasilar atelectasis. ACT 112: Negative or not required by law. Electronically signed by: Héctor Kent M.D. 09/24/2019 7:11 AM
[2019-09-24] MEDS: INSULIN ASPART 100 UNITS/ML 3 ML PEN SC SCH ×2 (08:18→12:17)
[2019-09-24] MEDS ORDERED: TICAGRELOR 90 MG TAB PO SCH (09:00)
[2019-09-24] MEDS ORDERED: CHOLECALCIFEROL 1,000 UNITS 25 MCG TAB PO SCH (09:00)
[2019-09-24] MEDS ORDERED: FOLIC ACID 400 MCG TAB PO SCH (09:00)
[2019-09-24] MEDS ORDERED: SACUBITRIL-VALSARTAN 24-26 MG TAB PO SCH (09:00)
[2019-09-24] MEDS ORDERED: METOPROLOL SUCC 50MG EXT REL TAB PO SCH (09:00)
[2019-09-24] MEDS ORDERED: CEROVITE ADV FORMULA TAB PO SCH (09:00)
[2019-09-24] MEDS ORDERED: PANTOprazole 40 MG TAB PO SCH (09:00)
--- NOTE | 2019-09-24 10:13 | Cardiology Progress Note ---
Date of Service September 24, 2019 Assessment & Plan (1) Substernal chest pain: His symptoms of chest pain or atypical in nature. I believe he had acute stent thrombosis his pain would not been unrelenting and more significant. He certainly is at risk of stent thrombosis given his use of a single anti-platelet agent. We did discuss the option of desensitization again, but he refused. I do not believe there is any additional therapy other than Brilinta in this situation. He has done well on this single regimen previously. I think if left arm pain is likely related to the procedure in particular. We did use the left ulnar artery for the procedure and his symptoms could be related. The mild elevation is biomarkers are not suggestive of recent myocardial infarction or significant event. He did seem to feel better with nitroglycerin. The pain prescribing him a daily dose of isosorbide mononitrate may be helpful. (2) Stented coronary artery: (3) Elevated troponin: (4) Left bundle branch block: He may be a good candidate for cardiac resynchronization therapy in the future (5) Ischemic cardiomyopathy: I do not believe his breathing trouble is likely related to decompensated heart failure. It is possibly related to Brilinta. His lung examination was normal today. He also has known COPD. He is ambulatory around the lee without significant dyspnea. Admission and Anticipated Discharge Date Admission Date: September 24, 2019 Subjective Procedure was uncomplicated and the patient was discharged following day. Patient states that since his procedure he had noticed left arm discomfort. This appeared to be an aching sensation and was fairly constant but mild in nature up until yesterday. Patient routine visit with his primary care physician at which point he reported some symptoms of chest discomfort as well. This discomfort was initially an aching sensation but also involve some intermittent sharp pains. These occurred in a fleeting fashion. They were not associated with exertion. Based on his symptoms he was advised to seek medical attention and presented to a local emergency room. Patient did take 1 sublingual mitral which resolved his symptoms. He was monitored in the emergency room and did undergo evaluation with an EKG and serial biomarkers. Patient was advised to consider admission locally but instead drove himself to our facility. He has not had any symptoms since his initial evaluation. He states that his left arm discomfort has also resolved entirely. This morning he was feeling well and ambulatory without recurrent symptoms of chest discomfort or left arm pain. The patient is a 61-year-old gentleman who recently underwent percutaneous intervention to the LAD for symptoms of dyspnea and known cardiomyopathy. Review of Systems Review of Systems: Patient did report occasional episodes breathing difficulty. He characterize this as a sense needing to take through for deep breaths. These are happen intermittently and not associated with exertion. They have been reduced in frequency lately. Physical Exam Physical Exam: The patient is alert and oriented. Mood and affect appeared normal. He answered all questions appropriately. HEENT: Pupils are equal and reactive to light and accommodation. Extraocular movements are intact. The sclerae are anicteric. Neuro: Cranial nerves intact Neck: Patient's neck is supple. He has palpable carotid pulses bilaterally without bruits on auscultation. There is no evidence of jugular venous distention. The thyroid is not enlarged. Lungs: Clear to auscultation bilaterally. He has good air movement without use of accessory muscles. No rales wheezes or rhonchi. Cardiac: Heart demonstrates a regular rate and rhythm. Normal S1 and S2. No murmurs on examination. Pulses: The patient has palpable radial pulses bilaterally that are equal in intensity. Strong left ulnar pulse. Extremities: There was no evidence of hypoperfusion. There is no cyanosis or clubbing. There is no edema. Skin: I did not appreciate any rashes on examination today. Results & Data ([facility]) Vital Signs (Past 12 Hours) Vital Signs Temp Pulse Pulse Pulse Resp BP BP 09/24/19 07:25 36.6 C 93 H 17 132/83 09/24/19 04:45 36.5 C 104 H 18 148/90 H 09/24/19 04:27 90 20 126/79 09/24/19 03:50 90 20 135/85 09/24/19 03:30 96 H 15 09/24/19 03:00 91 H 22 111/68 09/24/19 02:30 91 H 13 116/70 09/24/19 02:01 93 H 21 09/24/19 02:00 93 H 16 112/75 09/24/19 01:31 97 H 24 115/78 09/24/19 01:27 09/24/19 01:00 98 H 21 110/75 09/24/19 00:53 98 H 17 121/80 09/24/19 00:30 101 H 20 127/76 Pulse Ox 09/24/19 07:25 98 09/24/19 04:45 97 09/24/19 04:27 97 09/24/19 03:50 96 09/24/19 03:30 96 09/24/19 03:00 97 09/24/19 02:30 96 09/24/19 02:01 96 09/24/19 02:00 95 09/24/19 01:31 97 09/24/19 01:27 97 09/24/19 01:00 96 09/24/19 00:53 95 09/24/19 00:30 97 Laboratory Results Abnormal Lab Results 09/24/19 09/24/19 09/24/19 01:29 01:29 01:29 WBC 10.51 RBC 5.46 Hgb 12.0 L Hct 38.1 L MCV 69.8 L MCH 22.0 L MCHC 31.5 L RDW Std Deviation 39.6 RDW Coeff of Awais 15.8 H Plt Count 209 MPV 10.5 H Immature Gran % (Auto) 1.4 Neut % (Auto) 68.1 Lymph % (Auto) 17.0 Wharton % (Auto) 9.7 Eos % (Auto) 3.5 Baso % (Auto) 0.3 Immature Gran # (Auto) 0.15 H Neut # (Auto) 7.15 H Lymph # (Auto) 1.79 Wharton # (Auto) 1.02 H Eos # (Auto) 0.37 Baso # (Auto) 0.03 Microcytosis Present PT 10.2 INR 1.0 APTT 27.3 PTT Ratio 1.0 Sodium 139 Potassium 3.8 Chloride 110 H Carbon Dioxide 20 L Anion Gap 9.0 BUN 13 Creatinine 1.12 Est Cr Clr Drug Dosing 70.9 Est GFR ( Amer) 77.8 Est GFR (Non-Af Amer) 67.1 BUN/Creatinine Ratio 12.0 Glucose 208 H POC Glucose Calcium 8.7 Phosphorus 2.6 Magnesium 2.0 Total Bilirubin 0.4 AST 7 L ALT 15 Alkaline Phosphatase 52 Troponin I 0.389 H* Total Protein 6.8 Albumin 3.3 L Globulin 3.5 Albumin/Globulin Ratio 0.9 Lipase 97 09/24/19 09/24/19 09/24/19 07:04 07:13 11:16 WBC RBC Hgb Hct MCV MCH MCHC RDW Std Deviation RDW Coeff of Awais Plt Count MPV Immature Gran % (Auto) Neut % (Auto) Lymph % (Auto) Wharton % (Auto) Eos % (Auto) Baso % (Auto) Immature Gran # (Auto) Neut # (Auto) Lymph # (Auto) Wharton # (Auto) Eos # (Auto) Baso # (Auto) Microcytosis PT INR APTT PTT Ratio Sodium Potassium Chloride Carbon Dioxide Anion Gap BUN Creatinine Est Cr Clr Drug Dosing Est GFR ( Amer) Est GFR (Non-Af Amer) BUN/Creatinine Ratio Glucose POC Glucose 160 H 177 H Calcium Phosphorus Magnesium Total Bilirubin AST ALT Alkaline Phosphatase Troponin I 0.352 H* Total Protein Albumin Globulin Albumin/Globulin Ratio Lipase Diagnostic Findings I reviewed his records from the outside facility including the source images of his EKG. PG Care Time/CCT Total # of Minutes Spent Total Time Spent with Patient: Total time spent is greater than 50% in coordination of care (as documented) at patient's floor/unit and/or counseling patient: Coding Level of Care Code 01393 Office/Outpt Visit, Est Diagnoses Substernal chest pain R07.2 Stented coronary artery Z95.5 Elevated troponin R79.89 Left bundle branch block I44.7 Ischemic cardiomyopathy I25.5
[2019-09-24 11:59] VITALS: BP 120/78; TEMP 98.1; O2SAT 97
[2019-09-24] MEDS ORDERED: ISOSORBIDE MONO EXTENDED REL 30 MG TABCR PO ONE (12:00)
--- NOTE | 2019-09-24 12:04 | Discharge Summary ---
Date of Service September 24, 2019 Admission HPI Per Admitting Provider The patient is a 69-year-old male with a past medical history including CAD status post PCI and stent to coronary artery on 09/18/[address] Del Real, diabetes mellitus, hypertension, COPD, left bundle branch block, ischemic cardiomyopathy, history of prostate surgery and GERD. He presented to outpatient PCP office today due to chest pain, other than resolved with sublingual nitroglycerin. He was advised to go to [facility] emergency department, where he was assessed and call was made to on-call cardiology at [facility], who is Dr. Ballesteros, who recommend the patient be admitted there. The patient left that emergency department, and arrived at [facility] emergency department, but while in route here did have an episode of burning in his chest that was relieved with sublingual articulation. Admission Exam Per Admitting Provider The patient is awake, alert and oriented 3, well developed and well nourished, normocephalic and atraumatic, lying in bed and in no acute distress. HEENT--PERRL, EOMI, mucous membranes and oropharynx normal. Neck--supple. No JVD. No bruits. Thyroid normal, trachea midline, no adenopathy. Heart--normal S1 and S2. No murmurs, rubs or gallops. Lungs--clear bilaterally, no respiratory distress, no accessory muscle use. Abdomen--normal bowel sounds and soft. Nontender. Nondistended, no hernias or masses, no organomegaly. Extremities--no cyanosis or clubbing. No edema. There are good distal pulses b/l. Dermatologic--normal skin turgor, normal color, no abnormal lymph nodes, no rash. Neurologic--cranial nerves II through XII grossly intact. Rheumatologic--normal range of motion. Psychiatric--normal affect. Principal Diagnosis Atypical chest pain Discharge Exam Constitutional well developed and well nourished; no acute distress Eyes PERRL, conjunctivae normal, anicteric sclerae Neck trachea midline, no thyromegaly Respiratory normal respiratory effort, lungs clear to auscultation Cardiovascular RRR, no murmur, no edema Gastrointestinal (Abdomen) normal bowel sounds, soft, nontender, no hepatosplenomegaly Musculoskeletal no cyanosis or clubbing, extremities motor strength 5/5 Neurologic moves all extremities and awake Psychiatric A+Ox3, euthymic affect Discharge Data Allergies Allergy/AdvReac Type Severity Reaction Status Date / Time Iodinated Contrast Media Allergy Severe Anaphylaxis Verified 09/24/19 01:36 aspirin Allergy Hives Verified 09/24/19 01:36 adenosine AdvReac Severe Wheezing Verified 09/24/19 01:36 oxycodone [From Percocet] AdvReac Severe Anxiety Verified 09/24/19 01:36 propranolol [From Inderal LA] AdvReac Mild Wheezing Verified 09/24/19 01:36 steroids AdvReac Severe Mood change Uncoded 09/24/19 01:36 Consultations 09/24/19 02:08 ED Decision to Admit Stat 09/24/19 05:11 Consult Cardiology Routine Consult Case Management - Discharge Planning Routine Hospital Course (1) Substernal chest pain: Jessica Anton is a 69 year old male admitted on September 24 2019 due to substernal chest pain. Elevated cardiac enzymes suspected to be from recent cardiac catheterization rather than stent thrombosis or new NSTEMI as reviewed by Dr Stokes. Patient refused desensitization of aspirin as only on single p latelet agent but he has done well with this in the past. Dr Stokes recommended starting on isosorbide mononitrate as his pain was helped by nitroglycerin at home. No non-cardiac source of pain was suspected from history, exam or labs.. He will follow up cardiology on discharge. Kind regards, Dr Pancho Aragon (2) History of percutaneous coronary intervention: (3) Stented coronary artery: (4) Elevated troponin: (5) Diabetes mellitus: (6) Hypertension: (7) COPD (chronic obstructive pulmonary disease): (8) Left bundle branch block: (9) Ischemic cardiomyopathy: (10) Gastroesophageal reflux disease: (11) Hyperlipidemia LDL goal <70: Total Time Total Time Spent Total Time Spent (In Minutes): 45 Total Time Includes: Examination of the Patient, Discharge Planning, Medication Reconciliation and Communication With Other Providers (Dr Stokes) Discharge Plan Discharge Items Patient Disposition: Home - Self-Care Reason For Visit: CHEST PAIN Discharge Diagnosis: NSTEMI - heart attack Activity: Resume your previous activity Non-emergency contact: Certified Technician Specialist Call non-emergency contact if: you have any medication questions and your symptoms worsen Follow-up/Referrals: John Stokes MD [Physician] - (2 weeks after discharge for hospital follow up) Cindy Barnett MD [Primary Care Provider] - 09/30/19 3:00 pm Diet: Carb Consistent or DM2 and Heart Healthy Addtl Attending Provider Instructions: You were admitted on September 24 2019 due to substernal chest pain. Elevated cardiac enzymes possible just residual from your recent catheterization therefore unclear if this represents a new heart attack or unstable angina. You were reviewed by cardiology and recommended starting on isosorbide mononitrate as prescribed below. Please follow up with cardiology as above. Call if getting lightheaded, headaches or recurrent chest pains. Kind regards, Dr Pancho Aragon Pending Studies at Discharge: No Stand-Alone Forms: My [facility] [employer], Smoking Cessation Medications and DC Order Prescriptions: New isosorbide mononitrate 30 mg tablet extended release 24 hr 30 mg PO DAILY Qty: 30 RF: 0 Continued simvastatin [Zocor] 40 mg tablet 40 mg PO HS RF: 0 cholecalciferol (vitamin D3) 25 mcg (1,000 unit) capsule 25 mcg PO QAM RF: 0 albuterol sulfate [Ventolin HFA] 90 mcg/actuation HFA aerosol inhaler 2 puffs INH Q6H PRN (Reason: Shortness Of Breath) RF: 0 metformin 500 mg tablet 500 mg PO QID RF: 0 nitroglycerin 0.4 mg tablet, sublingual 0.4 mg SL Q5M PRN (Reason: Chest Pain) RF: 0 fluticasone propion-salmeterol 232-14 mcg/actuation aerosol powdr breath activated 1 puffs INH BID RF: 0 metoprolol succinate 50 mg tablet extended release 24 hr 50 mg PO DAILY RF: 0 Entresto 24-26 mg tablet 1 tab PO BID RF: 0 pantoprazole 40 mg tablet,delayed release (DR/EC) 40 mg PO DAILY RF: 0 folic acid 800 mcg tablet 0.8 mg PO DAILY RF: 0 Brilinta 90 mg tablet 90 mg PO Q12H Qty: 120 RF: 3 glipizide 5 mg tablet extended release 24hr 5 mg PO BID RF: 0 ipratropium-albuterol 0.5 mg-3 mg(2.5 mg base)/3 mL Solution For Nebulization 3 ml INHALATION QID PRN (Reason: Shortness Of Breath Or Wheezing) RF: 0 PreserVision AREDS-2 [id number]-mg Capsule 1 tab PO BID RF: 0 Discharge Orders: Discharge Order (Routine); Ordered 09/24/19 Ordered By: Pancho Aragon Admission Data Admit Date/Time: 09/24/19 03:55 Attending Provider: Pancho Aragon Admit Provider: Jae Beltran Primary Care Provider: Cindy Barnett Other Providers: Jae Beltran ; John Del Real Other Interventions: Discharge Summary Assessment (RN) Last Done: 09/24/19 12:25 DC Date/Time DO NOT enter until pt leaves facility: 09/24/19 12:45 Coding Level of Care Code Admit/DC Same Day >8hr Level 3 Diagnoses Substernal chest pain R07.2 History of percutaneous coronary intervention Z98.61 Stented coronary artery Z95.5 Elevated troponin R79.89 Diabetes mellitus E11.9 Hypertension I10 COPD (chronic obstructive pulmonary disease) J44.9 Left bundle branch block I44.7 Ischemic cardiomyopathy I25.5 Gastroesophageal reflux disease K21.9 Hyperlipidemia LDL goal <70 E78.5
[2019-09-24 12:32] VITALS: PULSE 104
--- NOTE | 2019-09-24 15:56 | Electrocardiogram Report ---
Test Reason : Blood Pressure : / mmHG Vent. Rate : 104 BPM Atrial Rate : 104 BPM P-R Int : 132 ms QRS Dur : 140 ms QT Int : 382 ms P-R-T Axes : 061 -04 152 degrees QTc Int : 502 ms Sinus tachycardia Left bundle branch block Abnormal ECG When compared with ECG of 18-SEP-2019 11:15, No significant change was found Confirmed by Marko Cornejo ([id number]) on 09/24/2019 3:55:43 PM Referred By: CESARIO KHAN Confirmed By:Marko Cornejo
[2019-09-24] MEDS ORDERED: SIMVASTATIN 40 MG TAB PO SCH (21:00)
== END 2019-09-24 12:45 | disposition home or self-care (01) ==
LOC: ED 00:21 → 2S 00:21 → SUATTDRO 03:55 → 2S 04:27